=== PATIENT | male | born 2000 | race Hispanic/Latino ===

== ENCOUNTER 2020-04-20 14:01 | Emergency (ER) | payer BC ==
[~2020-04-20] VITALS: Ht 177.8 cm; Wt 104.3 kg
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
[2020-04-20 15:07] VITALS: BP 138/80
== END 2020-04-20 15:07 | disposition home or self-care (01) ==
LOC: ER 14:21
DX: S01.01XA Laceration without foreign body of scalp, initial encounter (principal); Y04.0XXA Assault by unarmed brawl or fight, initial encounter; Y92.008 Other place in unspecified non-institutional (private) residence as the place of occurrence of the external cause
CPT/HCPCS: 99282

== ENCOUNTER 2020-04-27 08:12 | Emergency (ER) | payer BC ==
[~2020-04-27] VITALS: Ht 177.8 cm; Wt 104.3 kg
--- NOTE | 2020-04-27 08:44 | Emergency Department Note ---
History of Present Illnes History of Present Illness Chief Complaint: General Medicine Complaints History of Present Illness This is a 19 year old male Chief Complaint Comment Patient presents to the ER for staple removal from scalp. Klaus placed 7 days ago Historian: Patient Arrival Mode: Car [employer] Required: No Onset (how long ago): day(s) (7) Location: L scalp Quality: Laceration w/ klaus Radiation: Reports non-radiation Severity: mild Onset quality: sudden Duration (how long): day(s) (7) Timing of current episode: constant Progression: improving Chronicity: new Context: Denies recent illness, Denies recent surgery Relieving factors: none Exacerbating factors: none Associated symptoms: Reports denies other symptoms Treatments prior to arrival: none Past Medical/Family History Physician Review I have reviewed the patient's past medical and family history. Any updates have been documented here. Past Medical History Recent Fever: No Clinical Suspicion of Infectio: No New/Unexplained Change in Ment: No Past Medical History: None Past Surgical History: None Review of Systems Review of Systems Constitutional: Reports no symptoms EENTM: Reports no symptoms Cardiovascular: Reports no symptoms Respiratory: Reports no symptoms Gastrointestinal: Reports no symptoms Genitourinary: Reports no symptoms Musculoskeletal: Reports no symptoms Integumentary: Reports no symptoms Neurological: Reports no symptoms Psychological: Reports no symptoms Endocrine: Reports no symptoms Hematological/Lymphatic: Reports no symptoms Physical Exam Related Data Allergies: Coded Allergies: No Known Allergies (Unverified , 04/20/20) Triage Vital Signs Vital Signs Date Time Temp Pulse Resp B/P (MAP) Pulse Ox O2 Delivery O2 Flow Rate FiO2 04/27/20 08:37 97.7 69 16 132/84 100 Vital signs reviewed: Yes Physical Exam CONSTITUTIONAL Constitutional: Present well-developed, Present well-nourished HENT HENT: Present normocephalic, Present oropharynx clear/moist, Present nose normal; Absent atraumatic (Healing 2cm laceraiton to L scalp with klaus in place) HENT L/R: Present left ext ear normal, Present right ext ear normal EYES Eyes: Reports PERRL, Reports conjunctivae normal NECK Neck: Present ROM normal PULMONARY Pulmonary: Present effort normal, Present breath sounds normal CARDIOVASCULAR Cardiovascular: Present regular rhythm, Present heart sounds normal, Present capillary refill normal, Present normal rate GASTROINTESTINAL Abdominal: Present soft, Present nontender, Present bowel sounds normal GENITOURINARY Genitourinary: Present exam deferred SKIN Skin: Present warm, Present dry MUSCULOSKELETAL Musculoskeletal: Present ROM normal NEUROLOGICAL Neurological: Present alert, Present oriented x 3, Present no gross motor or sensory deficits PSYCHOLOGICAL Psychological: Present mood/affect normal, Present judgement normal Procedures Procedures Procedure: 2 klaus removed from L scalp. Wound is healing well, no other concerns. Sydniee rated procedure well Assessment & Plan Medical Decision Making MDM 19 y.o M presents for staple removal. No other concern. Removed as noted in above procedure note. DC Assessment & Plan Final Impression: (1) Removal of klaus Depart Disposition: HOME, SELF-CARE Last Vital Signs Date Time Temp Pulse Resp B/P (MAP) Pulse Ox O2 Delivery O2 Flow Rate FiO2 04/27/20 08:37 97.7 69 16 132/84 100 DEJA BRUNER MD Apr 27, 2020 08:44
--- OUTSIDE RECORDS SUMMARY | 2020-04-27 08:46 | XMS REPORT | Continuity of Care Document ---
Author Author [facility] t Organization [facility] Address [address] [place] [phone] Phone Unavailable Care Team Providers Care Supervisor [place] Department Name Role Phone NO, PCP PCP Unavailable Payers Payer Name Policy Type Policy Number Effective Date Expiration Date S karri [employer] [place] Ppo [id number] I [facility] Problems Condition Name Condition Details Condition Category Status Onset Date Resolution Date Last Treatment Date Treating Clinician Comments Source Laceration of scalp Problem Active [facility] Allergies, Adverse Reactions, Alerts This patient has no known allergies or adverse reactions. Social History Social Habit Start Date Stop Date Quantity Comments Source Sex Assigned At 2000 00:00:00 2000 00:00:00 Male [facility] Medications This patient has no known medications. Vital Signs Vital Name Observation Time Observation Value Comments Source Body Temperature 2020-04-20 15:07:00 98.1 [degF] [facility] Heart Rate 2020-04-20 15:07:00 78 /min [facility] Respiratory rate 2020-04-20 15:07:00 17 /min [facility] BP Systolic 2020-04-20 15:07:00 138 mm[Hg] [facility] BP Diastolic 2020-04-20 15:07:00 80 mm[Hg] [facility] Oxygen saturation by Pulse oximetry 2020-04-20 15:07:00 100 /min [facility] Weight 2020-04-20 14:08:00 230 [lb_av] [facility] BMI (Body Mass Index) 2020-04-20 14:08:00 33.0 kg/m2 [facility] Procedures This patient has no known procedures. Plan of Care Planned Activity Planned Date Details Comments Source Instructions Laceration [facility] Encounters Start Date/Time End Date/Time Encounter Type Admission Type [facility] Care Department Encounter ID Source 2020-04-20 14:21:00 2020-04-20 15:07:00 Departed Emergency Room [facility] [id number] [facility] Results This patient has no known results.
== END 2020-04-27 08:44 | disposition home or self-care (01) ==
LOC: ER 08:44
DX: Z48.02 Encounter for removal of sutures (principal)
CPT/HCPCS: 99282